=== PATIENT | female | born 1960 | race Caucasian/White ===

== ENCOUNTER 2017-10-04 12:26 | Emergency (ER) | payer MEDICARE ==
[~2017-10-04] VITALS: Ht 170.2 cm; Wt 86.0 kg
[~2017-10-04 12:26] MED LIST: ASPI81 PO; ATOR40TA49 PO; CEPH500C3 PO; DEPA500T3 PO; HYDR-3534 PO; IBUP600T26 PO; LEVO.025 PO; LISI20 PO; LYRI50CA2 PO; METO25TA6 PO; OMEP40CA2 PO; PRAS10 PO; ZYPR10TA PO
[2017-10-04 12:32] VITALS: BP 133/65; PULSE 79; RESP 16; TEMP 98.1; O2SAT 96
[2017-10-04] MEDS ORDERED: ATOR40TA16 PO (12:51)
[2017-10-04] MEDS ORDERED: OLAN10TA PO (12:51)
[2017-10-04] MEDS ORDERED: TRAM50TA PO (12:51)
[2017-10-04] MEDS ORDERED: LISI-515 PO (12:51)
[2017-10-04] MEDS ORDERED: ASPI81CH6 CHEW (12:51)
[2017-10-04] MEDS ORDERED: DIVA500T PO (12:51)
[2017-10-04] MEDS ORDERED: PRAS10TA PO (12:51)
[2017-10-04] MEDS ORDERED: LEVO25TA4 PO (12:51)
[2017-10-04] MEDS ORDERED: METO1TAB42 PO (12:51)
--- NOTE | 2017-10-04 12:56 | PD ---
HPI Chief Complaint: Cold / Flu Symptoms Time Seen by Provider: 12:39 Travel History International Travel<30 days: No Contact w/Intl Traveler<30days: No Traveled to known affect area: No History of Present Illness HPI This patient complains of cough and congestion and runny nose. She thinks she might have the flu. Her duration of illness is 15 days. She is a smoker. No alleviating factors. PFSH Past Medical History Bipolar Disorder: Yes Cardiovascular Problems: No Congestive Heart Failure: No Coronary Artery Disease: Yes Diabetes: No Diminished Hearing: No Endocrine: No Gastrointestinal Disorders: Yes Genitourinary: No Hiatal Hernia: No Hypertension: Yes Immune Disorder: No Musculoskeletal: Yes (CHRONIC BACK PAIN) Neurologic: No Psychiatric: Yes (BIPOLAR, SCHIZOPHRENIC,PANIC ATTACKS,DEPRESSION) Reproductive: No Respiratory: No Schizophrenia: Yes Tetanus Vaccination: > 5 Years Influenza Vaccination: No ?: Not Menopausal: Yes Tubal Ligation: Yes Past Surgical History Abdominal Surgery: Yes (APPENDECTOMY) Appendectomy: Yes Body Medical Devices: NONE Cardiac Surgery: No Cholecystectomy: Yes Coronary Artery Bypass Graft: No Ear Surgery: No Endocrine Surgery: No Eye Surgery: No Gynecologic Surgery: Yes (LEFT OOPHERECTOMY) Hysterectomy: Yes ( CERVIX ONLY) Joint Replacement: No Neurologic Surgery: No Oral Surgery: Yes (TONSILLECTOMY) Pacemaker: No Thoracic Surgery: No Tonsillectomy: Yes Other Surgery: Yes Family History Family Myocardial Infarction: Yes (MOTHER) Social History Alcohol Use: Yes (2 beer daily) Tobacco Use: Yes (1 PPD) Substance Use: No Allergies-Medications (Allergen,Severity, Reaction): Coded Allergies: haloperidol (Unverified Adverse Reaction, Severe, pain in mouth, 10/04/17) Reported Meds & Prescriptions Reported Meds & Active Scripts Active Erythromycin Ethylsuccinate 400 Mg Tab 400 Mg PO Q8H Reported Omeprazole 40 Mg Cap 40 Mg PO DAILY Tessalon Perles (Benzonatate) 100 Mg Cap 200 Mg PO TID PRN Tramadol (Tramadol HCl) 50 Mg Tab 100 Mg PO Q4HR Atorvastatin (Atorvastatin Calcium) 40 Mg Tab 40 Mg PO HS Lisinopril 20 Mg Tab 20 Mg PO DAILY Effient (Prasugrel) 10 Mg Tab 10 Mg PO DAILY Divalproex DR (Divalproex Sodium) 500 Mg Tabdr 1,000 Mg PO HS Levothyroxine (Levothyroxine Sodium) 25 Mcg Tab 25 Mcg PO DAILY Metoprolol Succinate ER 24 HR (Metoprolol Succinate) 25 Mg Tab 25 Mg PO DAILY Aspirin Low Dose (Aspirin) 81 Mg Chew 81 Mg CHEW DAILY Olanzapine 10 Mg Tab 10 Mg PO DAILY Review of Systems HENT: No: Headaches Cardiovascular: No: Chest Pain or Discomfort Respiratory: Positive: Cough Physical Exam Narrative RESPIRATORY: Respiratory effort unlabored, no retractions or use of accessory muscles. Breath sounds are clear and symmetric. NECK: Symmetrical appearance, midline trachea. No mass or crepitus. Thyroid without enlargement, tenderness, or mass. GASTROINTESTINAL: Abdomen soft, non-tender, nondistended. Positive bowel sounds. No hepato-splenomegaly, or palpable masses. No guarding. Oral cavity clear Data Data Last Documented VS Vital Signs Date Time Temp Pulse Resp B/P (MAP) Pulse Ox O2 Delivery O2 Flow Rate FiO2 10/04/17 12:40 22 96 10/04/17 12:32 98.1 79 133/65 (87) Orders Orders Influenzae A/B Antigen (10/04/17 12:52) Chest, Single Ap (10/04/17 ) MDM Medical Decision Making Medical Screen Exam Complete: Yes Emergency Medical Condition: Yes Medical Record Reviewed: Yes Differential Diagnosis Flu syndrome, bronchitis, pneumonia Narrative Course I have reviewed the patient's electronic medical record. Reviewed her chest x-ray which is normal Influenza swab is negative Patient has a viral syndrome picture. She has been diagnosed with mild COPD and continues to smoke. We discussed smoking cessation but she says she will not quit smoking. She is insistent on antibiotic. I discussed that I don't see any indication for that but she is rather demanding. I wrote some erythromycin I doubt will help She is accepting risks of taking medication that I don't feel is indicated She doesn't want an inhaler either Diagnosis Primary Impression: Viral bronchitis Additional Impression: COPD with acute bronchitis Additional Instructions: The patient was advised to follow up with their physician and return if they worsen. Med/Other Pt SpecificInfo: Prescription(s) given Scripts Erythromycin Ethylsuccinate (Erythromycin Ethylsuccinate) 400 Mg Tab 400 MG PO Q8H for Infection, #15 TAB 0 Refills Prov: Anderson Woodson MD 10/04/17 Disposition: 01 DISCHARGE HOME Condition: Stable Anderson Woodson MD Oct 04, 2017 12:56
[2017-10-04] MEDS ORDERED: BENZ100 PO (13:06)
[2017-10-04] MEDS ORDERED: OMEP40CA2 PO (13:06)
--- NOTE | 2017-10-04 13:15 | RADRPT ---
EXAM DATE/TIME: 10/04/2017 12:57 [facility] COMPARISON: CHEST SINGLE AP, May 24, 2016, 22:25. INDICATIONS : Cough MEDICAL HISTORY : Hypertension. Chronic back pain. Bipolar disease. Schizophrenia. SURGICAL HISTORY : Hysterectomy. Hypertension. Chronic back pain. Bipolar disease. Schizophrenia. ENCOUNTER: Initial ACUITY: 2 weeks PAIN SCORE: 0/10 LOCATION: Bilateral chest FINDINGS: Accounting for some rotation, there is slight dextroposition of the heart, unchanged from prior. Othe rwise, lungs are clear. Degenerative spurring of the dorsal spine is stable. Osseous structures are o therwise intact. CONCLUSION: 1. Mild dextroposition of the heart and mediastinum. Accounting for degree of rotation, this is basic ally unchanged. 2. Otherwise, lungs are clear. Ruslan Garcia MD on October 04, 2017 at 13:09 Board Certified Radiologist. This report was verified electronically.
[2017-10-04] MEDS ORDERED: ERYT400T4 PO (13:48)
[2017-10-04] MEDS ORDERED: VENTAER INH (14:00)
== END 2017-10-04 14:00 | disposition home or self-care (01) ==
LOC: PHED 12:26
DX: J44.9 Chronic obstructive pulmonary disease, unspecified (principal); F31.9 Bipolar disorder, unspecified; I25.10 Atherosclerotic heart disease of native coronary artery without angina pectoris; I10 Essential (primary) hypertension; F20.9 Schizophrenia, unspecified; F41.0 Panic disorder [episodic paroxysmal anxiety]; Z79.82 Long term (current) use of aspirin; Z79.899 Other long term (current) drug therapy; Z88.8 Allergy status to other drugs, medicaments and biological substances
CPT/HCPCS: 71045; 87804; 99284

== ENCOUNTER 2017-10-18 09:31 | Emergency (ER) | payer MEDICARE ==
[~2017-10-18] VITALS: Ht 170.2 cm; Wt 82.0 kg
[~2017-10-18 09:31] MED LIST changes: -ASPI81 PO; +ASPI81CH6 CHEW; +ATOR40TA16 PO; -ATOR40TA49 PO; +BENZ100 PO; -CEPH500C3 PO; -DEPA500T3 PO; +DIVA500T PO; +ERYT400T4 PO; -HYDR-3534 PO; -IBUP600T26 PO; -LEVO.025 PO; +LEVO25TA4 PO; +LISI-515 PO; -LISI20 PO; -LYRI50CA2 PO; +METO1TAB42 PO; -METO25TA6 PO; +OLAN10TA PO; -PRAS10 PO; +PRAS10TA PO; +TRAM50TA PO; +VENTAER INH; -ZYPR10TA PO
[2017-10-18 09:45] VITALS: BP 155/73; PULSE 75; RESP 18; TEMP 98.1; O2SAT 99
== END 2017-10-18 11:20 | disposition left against medical advice (07) ==
LOC: NETRI 09:31
DX: Z76.0 Encounter for issue of repeat prescription (principal); Z53.21 Procedure and treatment not carried out due to patient leaving prior to being seen by health care provider
CPT/HCPCS: 99281